=== PATIENT | female | born 1970 | race Caucasian/White ===

== ENCOUNTER 2017-03-11 08:15 | Inpatient (IN) ==
[2017-03-11] MEDS ORDERED: ZOFRAN IV PRN (08:23)
[2017-03-11 09:37] LABS: MANUAL DIFF NEEDED? NO
[2017-03-11 09:49] LABS: BASO% 0.9 % (0.0-0.8); EOS# 0.23 X1000 (0.0-0.7); EOS% 4.3 % (0.0-10.0); HEMOGLOBIN 10.8 g/dL (12.0-16.0); IMM GRAN# 0.05 X1000 (0.0-0.04); IMM GRAN% 0.9 % (0.0-0.5); LYMPH# 1.49 X1000 (1.2-3.4); LYMPH% 28.1 % (20.5-51.1); MCH 27.1 PG (27-31); MCHC 30.9 g/dL (33-37); MCV 87.9 FL (81-99); MONO# 0.46 X1000 (0.11-0.59); MONO% 8.7 % (1.7-9.3); MPV 9.6 FL (7.4-10.4); NEUT% 57.1 % (42.2-75.2); PLT 279 X1000 (130-400); RBC 3.98 XMIL (4.2-5.4)
[2017-03-11 10:06] LABS: HEMOGLOBIN A1C 6.4 % (4.8-6.0)
[2017-03-11 10:07] LABS: ALBUMIN 4.1 g/dL (3.5-5.0); CALCIUM 9.3 mg/dL (8.8-10.2); POTASSIUM 4.7 mmol/L (3.5-5.1); TOTAL BILIRUBIN 0.36 mg/dL (0.20-1.00); TOTAL PROTEIN 6.9 g/dL (6.3-8.3)
[2017-03-11 10:50] LABS: SED RATE 33 mm/hr (0-20)
[2017-03-11] MEDS ORDERED: VANCOMYCIN IV PER PHARMACY MISC SCH (12:00)
[2017-03-11] MEDS: HUMULIN R SUBQ SCH ×3 (12:38→21:17)
[2017-03-11] MEDS: NS 1,000 ML IV SCH (12:39)
[2017-03-11] MEDS: MAXIPIME 2 GM/NS 2 GM/100 ML IVPB IV SCH (12:39)
--- NOTE | 2017-03-11 13:18 | CONSULTATION ---
DATE OF CONSULTATION: 03/11/2017 CONCLUSION: This 46-year-old female diabetic is admitted to the hospital with severe cellulitis of the right 2nd toe and there may be an associated osteomyelitis as well. RECOMMENDATIONS: I have placed the patient on vancomycin and cefepime pending results of the culture I took from the patient's toe. I have also ordered a bone scan of the toe. Previously Dr. Valenzuela had an x-ray of the foot and it showed possible osteomyelitis in the distal part of the 2nd toe. DISCUSSION: The patient approximately 3 weeks ago started developing erythema and swelling of her 2nd toe. It also started to ulcerate distally. She has been on moxifloxacin and doxycycline but her toe still remains red and swollen. A plain x-ray of the toe shows possible evidence of osteomyelitis in the distal part of the right toe. The patient's laboratory studies show a CBC with a white count of 5300, hemoglobin 10.8, and platelet count 279,000. Creatinine is 1.1. The GFR is 53. Liver function studies are normal. PHYSICAL EXAMINATION: Vital Signs: Temperature is 98.1 degrees, pulse 72, respirations 18, blood pressure 123/54. The patient's weight is 284 pounds. General: This is an obese, middle-aged female. She is in no acute distress. Head, eyes, ears, nose, and throat: She can hear my spoken words and see near objects. No drainage noted from the nose or ears. Neck: No meningismus. Lungs: Clear to auscultation. Cardiovascular: Peripheral pulses were strong distally. Heart rate was regular. Abdomen: Soft and nontender. Extremities: The right 2nd toe is erythematous and swollen. There is a distal ulcer on it. It is from this ulcer that I obtained a culture of the foot. It did not appear that when I entered the ulcer with a swab that it went down all way to the bone. Neurologic: Patient is alert. She can move her extremities. There is no tremor. Her sensation is intact to touch. COMMODITIES MANAGER HISTORY: She is a 2, para 2, AB 0. She has had a hysterectomy and tubal ligation. PREVIOUS HOSPITALIZATIONS AND OPERATIONS: She has had 2 labor and deliveries, a hysterectomy, tubal ligation, surgery on her right ankle which was fractured, a cholecystectomy and admission for pneumonia. MEDICAL DISEASES: Positive for diabetes mellitus, hypertension, obesity and hyperlipidemia, fibromyalgia. INFECTIOUS DISEASE HISTORY: Positive for pneumonia. FAMILY HISTORY: Positive for diabetes mellitus, hypertension, myocardial infarction, stroke, and cancer. SOCIAL HISTORY: [place] She is . Her daughter and son-in-law and their child live with the patient. She does not smoke cigarettes, drink alcoholic beverages or abuse drugs. She does not have any pets at home. She works as a medical recruiter. ALLERGIES: The patient's chart lists allergies to acetaminophen and hydrocodone. HOME MEDICATIONS: Include the following tramadol, metformin, lisinopril, Lopid, Neurontin, vitamin D 2, diclofenac and aspirin. Thank you for the consult. cc: MD Mitch Barakat MD
[2017-03-11] MEDS: VANCOMYCIN 2 GM in NS 500 ML IV SCH (17:14)
--- NOTE | 2017-03-11 17:16 | Diag Imaging Result Doc PS360 ---
EXAM: 3 PHASE BONE SCAN INDICATION: right toe 2 osteomyelitis TECHNIQUE: 25.9 mCi of technetium 99 MDP was administered intravenously and three phase images of the feet were obtained usual fashion post administration. COMPARISON: None. FINDINGS: There is mild increased uptake associated with both ankles on the blood flow and blood pool phases indicating nonspecific hyperemia. There is also mild increased uptake at the tip of the second toe on the right on all three phases consistent with focal osteomyelitis. This corresponds to the bony erosion that can be seen on the previous plain radiograph of the toes dated 03/04/2017. On delayed images, there is also significant increased uptake at the mid foot on the right is nonspecific. It is likely associated with one or more of the tarsal bones. Correlation with a plain radiograph of the right foot is recommended. There is milder vague increased uptake around the left ankle and midfoot. This could represent degenerative uptake. IMPRESSION: 1.Focal increased uptake on all three phases at the tip of the second toe consistent with osteomyelitis, which was also suggestive of a recent plain radiograph. 2.Fairly intense increased uptake at the midfoot on the right that is nonspecific. Correlation with at least a plain radiograph of the right foot is recommended. 3.Milder increased uptake at the left ankle and midfoot. This may be degenerative uptake. Electronically signed by Ronn Sainz 03/11/2017 5:14 PM
[2017-03-12] MEDS: MAXIPIME 2 GM/NS 2 GM/100 ML IVPB IV SCH ×2 (00:23→12:49)
[2017-03-12] MEDS: HUMULIN R SUBQ SCH ×4 (06:56→21:15)
--- NOTE | 2017-03-12 11:37 | PROGRESS NOTE ---
DATE: 03/12/2017 SUBJECTIVE: The patient overall is okay. She does not feel like she can go through PICC line and 6 weeks of IV antibiotics, as she is a difficult stick and had 9 attempts yesterday at IV placement. OBJECTIVE: Vital signs: Afebrile, pulse 68, blood pressure 120/65, respirations 18, weight 284, 5 feet 6 inches tall. CV: RRR. Lungs: CTA. Abdomen: Nontender. Extremities: No edema. Right 2nd toe with prominent swelling and redness, most intense at the distal right 2nd toe with an ulceration, better, on the distal tip. There is heaped-up thickened toenail with signs of toenail fungus, better as well. There is desquamation of the skin back to the midportion, and midportion of the toe was quite swollen and red, as well. Peripheral pulse 2+. Neurological: Cranial nerves intact, nonfocal. LABORATORY DATA: CMP normal. A1c 6.4. White count 5.3, hemoglobin 10.8, platelets 279. Sedimentation rate 33. Culture on the right 2nd toe is pending. IMAGING: Bone scan shows increased uptake in all 3 phases at the tip of the right 2nd toe consistent with osteomyelitis which was suggested on recent plain films outpatient. Also, fairly intense midfoot on the right uptake. The patient has had at least 2 extreme traumas to the right foot and ankle in the past on the right. There is a mild uptake of nuclear medicine at the left ankle and midfoot consistent with degenerative changes. ASSESSMENT: 1. Right 2nd toe osteomyelitis with cellulitis. 2. Type 2 diabetes mellitus. 3. Hypertension. 4. Morbid obesity. 5. Hyperlipidemia. 6. Fibromyalgia. PLAN: She is followed by Rheumatology in [place], and will place her back on her fibromyalgia medicines of Neurontin, Cymbalta. Will leave her off her aspirin right now in case Dr. Culp wants to perform surgery on the patient. We are going to ask him to see her in regard to possible amputation of the distal aspect, right 2nd toe. We have done an x-ray of her right foot, which is pending. Dr. Dexter has started her on IV antibiotics in the form of cefepime and vancomycin. Will continue those, and will give pain medicines as required. Will follow serial Accu-Cheks, and SSI will be given. cc: Mitch Valenzuela MD
--- NOTE | 2017-03-12 14:21 | Diag Imaging Result Doc PS360 ---
EXAM: FOOT COMPLETE RIGHT INDICATION: abn bone scan TECHNIQUE: 3 views COMPARISON: None. FINDINGS: There are metallic screws in the distal tibia. The increased uptake involving the right midfoot seen on the recent bone scan dated 03/11/2017 appears to correspond to degenerative arthropathy at the tarsometatarsal joints, more prominent medially. There is a small bone spur at the calcaneus. There is bony erosion at the tip of the second toe consistent with known osteomyelitis. There is soft tissue edema around the foot and, most prominently, around the second toe. IMPRESSION: 1.Extensive tarsometatarsal degenerative changes that appears to account for the increased uptake seen on a recent bone scan. 2.Erosion of the distal phalanx of the second toe consistent with known osteomyelitis. Electronically signed by Ronn Sainz 03/12/2017 2:19 PM
[2017-03-12] MEDS: VANCOMYCIN 2 GM in NS 500 ML IV SCH (15:27)
[2017-03-12] MEDS: NEURONTIN PO SCH ×2 (15:32→17:30)
[2017-03-12] MEDS: LOPID PO SCH (21:15)
[2017-03-12] MEDS: TYLENOL PO PRN (22:27)
[2017-03-13] MEDS: MAXIPIME 2 GM/NS 2 GM/100 ML IVPB IV SCH ×2 (01:12→12:20)
--- NOTE | 2017-03-13 04:09 | HISTORY AND PHYSICAL ---
CHIEF COMPLAINT: Right 2nd toe osteomyelitis. HISTORY OF PRESENT ILLNESS: The patient is a 46-year-old, white female who presented to the office on 03/04/2017 with complaints of a 3-1/2 week history of ulceration that developed on the distal right 2nd toe after she had worn some sandals which seemed to cause a rash and she began to scratch. Thereafter, she developed an ulceration, and some purulence and redness of the right 2nd toe which extended back more toward the base of the right 2nd toe. She came into the office and had some purulence. We placed her on antibiotics outpatient of Avelox 400 mg daily and doxycycline 100 mg b.i.d. X-ray of her toe, however, did show some evidence of possible osteomyelitis. Tried to make her an outpatient appointment with Dr. Tray Dexter but we were unsuccessful in doing so and the toe worsened slightly so we admitted her to the hospital here for further IV antibiotics and treatment since there is potential for an amputation of the distal aspect of the toe if that is warranted. MEDICATIONS: Other medications prior to admission are Cymbalta 60 mg p.o. daily, lisinopril 40 mg p.o. daily, Synjardy 12.5/500 one p.o. b.i.d. with breakfast and supper, Neurontin per Dr. Martinez at 600 mg p.o. b.i.d., Lopid 600 mg p.o. b.i.d. ALLERGIES: NKDA. PAST MEDICAL HISTORY: 1. Obesity. 2. Type 2 diabetes mellitus, diagnosed September 2008. 3. Fibromyalgia, followed by Dr. Martinez, diagnosed 2015. 4. JOSE, diagnosed April 2016. 5. Dyslipidemia. 6. History of headaches. PAST SURGICAL HISTORY: 1. Right ankle ORIF in 1976. 2. BTL in October 1995. 3. Laparoscopic cholecystectomy in 2006. IMMUNIZATIONS: Tdap given May 2016. FAMILY HISTORY: Notable for MO in mother at age 48, father at age 46. Coronary artery disease noted in her paternal grandfather and paternal grandmother. Maternal grandfather had MO at age 60, maternal grandmother at age 50. Adult onset diabetes mellitus in 4 great aunts and her sister. Paternal grandfather with a stroke, along with her paternal uncle. No cancer in the family. Mother and paternal grandfather with hypertension. SOCIAL HISTORY: The patient lives in [place]. She is . She has 2 children. She had never been a smoker. Drinks minimal amount of alcohol. Denies any drug use. 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 REVIEW OF SYSTEMS: Negative except as above. PHYSICAL EXAMINATION: VITAL SIGNS: Weight 292, blood pressure 122/78, pulse 85, temperature 98.8 degrees. GENERAL: Morbidly obese, white female, no acute distress. SKIN: There is prominent redness to the mid and distal aspects of the right 2nd toe with heaped up, thickened skin around the dystrophic nail of the right 2nd toe. There is an ulceration at the distal aspect of the right 2nd toe which I had debrided in the office briefly earlier. There are no signs of redness, warmth, or tenderness in the foot on the right. HEENT: PERRL. EOMI. Sclerae anicteric. OP without redness. Tongue in the midline. NECK: No LA, TMG, JVD, bruits. CV: RRR without murmur. LUNGS: CTA. BACK: NT. ABDOMEN: Protuberant, soft. No mass or organomegaly. BREASTS/PELVIC/RECTAL: Deferred. EXTREMITIES: No calf tenderness, cords, or edema. Peripheral pulses 2+/4 in bilateral lower extremities. NEUROLOGIC: Cranial nerves are intact. Nonfocal. ASSESSMENT: 1. Right 2nd toe osteomyelitis and cellulitis. 2. Type 2 diabetes mellitus. 3. Morbid obesity. 4. Fibromyalgia. 5. Dyslipidemia. 6. Obstructive sleep apnea. 7. History of remote headaches. PLAN: We will admit the patient. Check extensive labs to include CBC, sedimentation rate, CMP. Check bone scan and we will ask Dr. Tray Dexter to see the patient in consultation for his advice on IV antibiotics and further treatment. cc: Mitch Valenzuela MD
[2017-03-13] MEDS: HUMULIN R SUBQ SCH ×4 (06:13→22:16)
[2017-03-13] MEDS: CYMBALTA PO SCH (08:58)
[2017-03-13] MEDS: PRINIVIL PO SCH (08:58)
[2017-03-13] MEDS: NEURONTIN PO SCH ×3 (08:58→22:16)
[2017-03-13] MEDS: LOPID PO SCH ×2 (08:58→22:16)
--- NOTE | 2017-03-13 10:56 | PROGRESS NOTE ---
DATE: 03/13/2017 SUBJECTIVE: Patient complains of some diffuse body aches overall off her Voltaren gel. OBJECTIVE: Vital signs: Afebrile, pulse 83, blood pressure 1303/59, O2 saturation on room air 96%. CV: RRR. Lungs: CTA. Abdomen: Nontender and nondistended. Extremities: No calf tenderness cords or edema. right 2nd toe is bandaged. There is no redness in the foot whatsoever. IMAGING STUDIES: X-rays of right foot revealed arthritic changes in the forefoot area. No osteomyelitis. Hardware in the right ankle. ASSESSMENT: 1. Osteomyelitis right 2nd toe with cellulitis right 2nd toe. 2. Type 2 diabetes mellitus. 3. Hypertension. 4. Morbid obesity. 5. Hyperlipidemia. 6. Fibromyalgia. PLAN: Explained to the patient that we are leaving off the Voltaren in prep for potential surgery per Dr. Culp to remove the distal aspect of her right 2nd toe. Dr. Culp evaluate and see the patient this morning. She will remain on IV antibiotics per Dr. Dexter and her home medications other than the diabetic medications and medicines that would prohibit surgery. Continue present care with possible surgery for tomorrow. cc: Mitch Valenzuela MD
[2017-03-13] MEDS: NS 1,000 ML IV SCH (12:20)
--- NOTE | 2017-03-13 12:23 | CONSULTATION ---
DATE OF CONSULTATION: 03/13/2017 CHIEF COMPLAINT: Right second toe wound. HISTORY OF PRESENT ILLNESS: Ms. aDsh is a 46-year-old female with a history of poorly controlled diabetes, developed diabetic neuropathy. Had this reddened area on her 2nd toe come up over the past several weeks. Eventually developed into a sore and started draining a lot. She has seen her primary care physician, Dr. Valenzuela, who put her on some outpatient antibiotics. Unfortunately, it did not clear up very well, so he admitted her to the hospital for IV antibiotics and surgical consultation. She does not really have any pain with it because she has neuropathy. This has been going on for about a good 3-4 weeks at this point. PAST MEDICAL HISTORY: Diabetes, sleep apnea. PAST SURGICAL HISTORY: ORIF ankle 1976. Tubal ligation and cholecystectomy. FAMILY HISTORY: Positive for heart disease. SOCIAL HISTORY: She denies any smoking. REVIEW OF SYSTEMS: Positive for this right 2nd toe sore. All other systems are essentially negative. PHYSICAL EXAMINATION: General: Well-developed, well-nourished female in no acute distress. HEENT: Head and neck normocephalic, atraumatic. Respirations: Nonlabored. Cardiovascular: Regular rate. Abdomen: Nondistended. Extremity: Right lower extremity exam, in looking at the second toe, she has ulceration to the tip. It is swollen throughout the toe, and there is erythema coming up almost to the MTP joint. Denied any active drainage out of the end of the toe. She has really no sensation at all to the toe. She has good capillary refill. No other sores seen around the foot. IMAGING: Her foot x-ray and toe x-rays were reviewed. The most recent foot x-ray shows fracture of the distal phalanx of the second toe. ASSESSMENT: 1. Right second toe diabetic foot ulcer with cellulitis. 2. Possible right second toe osteomyelitis. 3. Right second toe distal phalanx fracture. PLAN: I went over with Ms. Dash about the second toe. It does not look terrible on physical exam, but what is worrisome is that the distal phalanx is fractured, and there is a wound to the distal tip of the toe, and in that type of setting, you always worry about osteomyelitis of that distal phalanx. I discussed with her about treatment. She has some concerns about treatment, especially if she will not be able to lift much after her PICC line. The question is whether we need to go in and amputate the distal tip of the toe, try to completely get rid of the infection versus just treatment with IV antibiotics and see how we do. Her leaning is toward having the surgery, just to go in to just care of it. What I will do is I will discuss things with Dr. Dexter though and we will come up with a good plan. She can eat and drink today. We would not do anything probably until tomorrow or even Tuesday. cc: MD Mitch Mckeon MD
[2017-03-13] MEDS: VANCOMYCIN 2 GM in NS 500 ML IV SCH (16:12)
[2017-03-13] MEDS: TYLENOL PO PRN (23:05)
[2017-03-14] MEDS: MAXIPIME 2 GM/NS 2 GM/100 ML IVPB IV SCH ×2 (02:28→13:47)
[2017-03-14] MEDS: DILAUDID IV PRN ×2 (05:24→21:20)
[2017-03-14] MEDS: HUMULIN R SUBQ SCH ×4 (07:59→21:19)
[2017-03-14] MEDS: PRINIVIL PO SCH (09:18)
[2017-03-14] MEDS: NEURONTIN PO SCH ×3 (09:18→21:19)
[2017-03-14] MEDS: CYMBALTA PO SCH (09:19)
[2017-03-14] MEDS: LOPID PO SCH ×2 (09:19→21:19)
--- NOTE | 2017-03-14 11:59 | PROGRESS NOTE ---
DATE: 03/14/2017 SUBJECTIVE: Ms. Dash is sitting at bedside. OBJECTIVE: Left lower extremity exam, still sore to the tip of the 2nd toe. ASSESSMENT: Left 2nd toe osteomyelitis of the distal phalanx with open sore. PLAN: I am okay with Ms. Dash being discharged from the hospital today. What I will do is see her in my clinic this 03/16/2017, and we will get her scheduled for surgery on an outpatient basis for a distal tip amputation 2nd toe so she will need to see me this Tuesday in clinic. cc: MD Mitch Mckeno MD
[2017-03-14] MEDS: NS 1,000 ML IV SCH (13:48)
--- NOTE | 2017-03-14 15:36 | PROGRESS NOTE ---
DATE: 03/14/2017 PRESENT ILLNESS: The patient has cellulitis and osteomyelitis of the 2nd toe of the right foot due to infection with oxacillin-sensitive Staph aureus. MEDICATIONS: Currently the patient is on vancomycin and cefepime. PHYSICAL EXAMINATION: Vital Signs: Temperature is 97.7 degrees, pulse 76, respirations 18, blood pressure 112/55. Generally: This is an obese middle-aged female. She is in no acute distress. Lungs: Clear to auscultation. Cardiovascular: Regular heart rate. Abdomen: Soft and nontender. Extremities: The patient's right 2nd toe is less erythematous and swollen than it was a couple days ago. LAB AND X-RAY: The patient's bone scan shows findings consistent with osteomyelitis of the 2nd toe. A culture from the toe is growing oxacillin-sensitive Staph aureus. ASSESSMENT AND PLAN: The patient has Staphylococcus osteomyelitis 2nd toe. I have switched from vancomycin and cefepime to Ancef as a single drug. I have discussed the patient's case with Dr. Culp and Dr. Valenzuela. We agree to treat the patient with IV antibiotics and send her home till the end of the week at which time Dr. Culp will performed surgery on her toe. I have ordered that a PICC be placed and a consult with [facility] to supply the patient's home IV antibiotic. I have requested that the patient see me back in the office in 3 weeks. COMORBIDITIES: Include diabetes mellitus. cc: MD Mitch Barakat MD
[2017-03-14 16:33] LABS: INR 0.96
[2017-03-14] MEDS: TYLENOL PO PRN (16:56)
[2017-03-14] MEDS: KEFZOL 2 GM/D5W 2 GM/50 ML IVPB IV SCH ×2 (16:56→23:02)
--- NOTE | 2017-03-14 17:39 | PROGRESS NOTE ---
DATE: 03/14/2017 SUBJECTIVE: Patient remains stable. She is feeling better today. Her right 2nd toe remains red. OBJECTIVE: Vital signs: Afebrile. Pulse 76, respirations 18, blood pressure 112/55, O2 saturation room air 98%. CARDIOVASCULAR: Regular rhythm and rate. Lungs: CTA. Abdomen: Nontender. Extremities: Right 2nd toe is still red. Distal 2/3 of the toe there is some desquamation in thickening scale to the skin of the 2nd toe and there is a dystrophic toenail right 2nd toe, ulceration which is dry distal tip of the right 2nd toe. LABORATORY: Culture from the wound done by Dr. Dexter reveals methicillin sensitive Staph aureus. Blood sugars in the high 100s to low 200s. ASSESSMENT: 1. Osteomyelitis right 2nd toe with cellulitis right 2nd toe. 2. Type 2 diabetes mellitus. 3. Hypertension. 4. Morbid obesity. 5. Hyperlipidemia. 6. Fibromyalgia. PLAN: Dr. Dexter is changing her over to IV Ancef with plans to place a PICC line and continue IV antibiotics outpatient as Dr. Culp plans for amputation of her distal 2nd toe on the right. He desires for this area to be cleaned prior to that operation. We will move in that regard. cc: Mitch Valenzuela MD
[2017-03-15] MEDS: NS 1,000 ML IV SCH (02:07)
[2017-03-15] MEDS: HUMULIN R SUBQ SCH ×4 (06:25→22:56)
[2017-03-15] MEDS: KEFZOL 2 GM/D5W 2 GM/50 ML IVPB IV SCH ×3 (08:10→22:57)
[2017-03-15] MEDS: CYMBALTA PO SCH (08:11)
[2017-03-15] MEDS: LOPID PO SCH ×2 (08:11→21:31)
[2017-03-15] MEDS: PRINIVIL PO SCH (08:12)
[2017-03-15] MEDS: NEURONTIN PO SCH ×3 (08:12→21:35)
[2017-03-15] MEDS: TYLENOL PO PRN ×2 (08:15→16:45)
[2017-03-15] MEDS ORDERED: NS 250 ML ONE (08:36)
--- NOTE | 2017-03-15 09:46 | PROGRESS NOTE ---
DATE: 03/15/2017 SUBJECTIVE: Patient complains of some left ankle pain and swelling, fairly mild, has developed. OBJECTIVE: Vital Signs: Afebrile. Pulse 88, blood pressure 119/56, room air saturation of 99%. CV: RRR. Lungs: CTA. Extremities: No calf tenderness or cords. Very minimal left ankle swelling and minimal tenderness. There is no warmth, no skin breakdown. Right toe unchanged. ASSESSMENT: 1. Osteomyelitis with cellulitis of right 2nd toe, growing out methicillin-sensitive Staphylococcus aureus. 2. Left ankle pain, rule out gout. 3. Type 2 diabetes mellitus. 4. Hypertension. 5. Morbid obesity. 6. Hyperlipidemia. 7. Fibromyalgia. PLAN: She is going down as we speak to get a PICC line. We will continue IV Ancef per Dr. Dexter. Outpatient plans for Dr. Culp to perform amputation of distal aspect of left 2nd toe. We will go ahead and check uric acid level. Start the patient on some Colcrys. cc: Mitch Valenzuela MD
[2017-03-15] MEDS: COLCRYS PO SCH ×2 (09:49→21:31)
[2017-03-15 10:14] LABS: MANUAL DIFF NEEDED? NO
[2017-03-15 10:19] LABS: BASO% 0.8 % (0.0-0.8); EOS# 0.23 X1000 (0.0-0.7); EOS% 4.4 % (0.0-10.0); HEMATOCRIT 34.2 % (37.0-47.0); HEMOGLOBIN 10.8 g/dL (12.0-16.0); IMM GRAN# 0.05 X1000 (0.0-0.04); IMM GRAN% 0.9 % (0.0-0.5); LYMPH# 1.14 X1000 (1.2-3.4); LYMPH% 21.6 % (20.5-51.1); MCH 27.5 PG (27-31); MCHC 31.6 g/dL (33-37); MONO# 0.45 X1000 (0.11-0.59); MONO% 8.5 % (1.7-9.3); MPV 10.3 FL (7.4-10.4); NEUT% 63.8 % (42.2-75.2); PLT 245 X1000 (130-400); RBC 3.93 XMIL (4.2-5.4)
[2017-03-15 10:44] LABS: AGAP 12; BUN 21 mg/dL (8-22); CHLORIDE 99 mmol/L (98-107); COSMO 277; POTASSIUM 5.1 mmol/L (3.5-5.1); SODIUM 135 mmol/L (136-145); TCO2 24 mmol/L (25-35)
[2017-03-15] MEDS ORDERED: ULTRAM PO PRN (17:58)
[2017-03-15] MEDS: DILAUDID IV PRN (21:31)
[2017-03-16] MEDS: NS 1,000 ML IV SCH (04:00)
[2017-03-16] MEDS: KEFZOL 2 GM/D5W 2 GM/50 ML IVPB IV SCH ×3 (06:31→23:07)
[2017-03-16] MEDS: HUMULIN R SUBQ SCH ×4 (06:31→23:07)
[2017-03-16] MEDS: PRINIVIL PO SCH (09:22)
[2017-03-16] MEDS: NEURONTIN PO SCH ×3 (09:22→17:00)
[2017-03-16] MEDS: CYMBALTA PO SCH (09:23)
[2017-03-16] MEDS: COLCRYS PO SCH ×2 (09:23→23:07)
[2017-03-16] MEDS: LOPID PO SCH ×2 (09:23→23:07)
--- NOTE | 2017-03-16 16:53 | PROGRESS NOTE ---
DATE: 03/16/2017 PRESENT ILLNESS: The patient has cellulitis and osteomyelitis of the right foot, second toe. A culture from the toe grew oxacillin-sensitive Staph aureus. MEDICATIONS: The patient currently is receiving cefazolin at a dose of 2 g IV every 8 hours. PHYSICAL EXAMINATION: Vital Signs: Temperature is 98.2 degrees, pulse 81, respirations 20, blood pressure 112/59. General: This is an obese, middle-aged female who is in no acute distress. Lungs: Clear to auscultation. Cardiovascular: Regular heart rate. Abdomen: Soft and nontender. Extremities: The left arm has a PICC in it. The PICC site is not erythematous or tender. The patient's right foot, toe 2 has a dressing around it. The dressing is intact. LAB AND X-RAY: There is no new x-ray. There is no new lab today. The culture from the toe grew an oxacillin-sensitive Staph aureus. ASSESSMENT AND PLAN: The plan is to continue with Ancef as a single agent. The patient is going to have surgery on her toe 2 of the right foot tomorrow. The patient's comorbidities include the following; she has diabetes mellitus. cc: MD Mitch Barakat MD
--- NOTE | 2017-03-16 16:56 | PROGRESS NOTE ---
DATE: 03/16/2017 SUBJECTIVE: Patient is stable. There has been a change of plans and patient has a PICC line in her left arm and is receiving IV antibiotics for the osteomyelitis. Dr. Culp now plans to perform the surgery on her with distal amputation of right 2nd toe tomorrow. So we are going to hold her in the hospital at this point, rather than discharge. Left ankle is still giving her some pain but is improved after addition of Colcrys OBJECTIVE: Afebrile, pulse 81, respiration is 20, blood pressure 112/59.CV: RRR without murmur. Lungs: CTA. Abdomen: Nontender, nondistended. Extremities: No calf tenderness, cords or edema. There is mild tenderness and warmth left ankle area. Right 2nd toe still has some redness and distal skin desquamation. ASSESSMENT: 1. Osteomyelitis with cellulitis right 2nd toe growing out methicillin-susceptible Staphylococcus aureus. 2. Left ankle pain related to gout with elevated uric acid level. 3. Type 2 diabetes mellitus. 4. Hypertension. 5. Morbid obesity. 6. Hyperlipidemia. 7. Fibromyalgia. PLAN: Continue Colcrys for the gout, which is helping. Continue pain control with Ultram and Dilaudid if necessary. Continue PICC line, IV antibiotics in the form of Ancef per Dr. Dexter. We will be following the patient perioperatively. cc: Mitch Valenzuela MD
[2017-03-17] MEDS: HUMULIN R SUBQ SCH ×4 (06:17→22:19)
[2017-03-17] MEDS ORDERED: XYLOCAINE-MPF 2% ONE (07:50)
[2017-03-17] MEDS ORDERED: DIPRIVAN 1% ONE (07:51)
--- NOTE | 2017-03-17 08:04 | PROGRESS NOTE ---
DATE: 03/17/2017 SUBJECTIVE: Ms. Dash is lying in bed this morning. Overall feeling okay. She has been n.p.o. since midnight. OBJECTIVE: Right lower extremity exam: The toe is still erythematous to the tip. There is Still an ulcer on the very tip of the toe as well. No other erythema to any of the of the toes or to the main part of the forefoot or midfoot. ASSESSMENT: Right second toe distal phalanx osteomyelitis. PLAN: Will plan for amputation of the distal phalanx of that right second toe today in the OR. I have already gone over with her the risks and benefits and she expressed understanding and wished to proceed. The right second toe was marked as correct surgical site this morning at bedside, with her in agreement. So, we will get everything set for distal tip amputation of second toe today. cc: MD Mitch Mckeon MD
[2017-03-17] MEDS ORDERED: FENTANYL ONE (08:52)
--- NOTE | 2017-03-17 08:52 | PROGRESS NOTE ---
DATE: 03/17/2017 SUBJECTIVE: Patient is stable. Left ankle pain from the gout is improving. She is scheduled for right second distal toe amputation later today per Dr. Culp. OBJECTIVE: Vital signs: Afebrile. Vital signs stable. CV: RRR. Lungs: CTA. Extremities: No calf tenderness, cords or edema. Right toe is bandaged and is marked for surgery later today. Peripheral pulses 2+ lower extremities. Blood sugars in the high 100s. ASSESSMENT: 1. Osteomyelitis right second toe with cellulitis, methicillin-sensitive Staphylococcus aureus. 2. Gout, left ankle, improving. 3. Type 2 diabetes mellitus. 4. Hypertension. 5. Morbid obesity. 6. Hyperlipidemia. 7. Fibromyalgia. PLAN: Continue IV antibiotics per Dr. Dexter. Continue Colcrys. Patient for surgery later today. Will monitor postoperatively. cc: Mitch Valenzuela MD
[2017-03-17] MEDS: KEFZOL 2 GM/D5W 2 GM/50 ML IVPB IV SCH ×5 (09:32→22:19)
[2017-03-17] MEDS ORDERED: REGLAN ONE (09:38)
[2017-03-17] MEDS ORDERED: PEPCID ONE (09:38)
[2017-03-17] MEDS ORDERED: ZOFRAN ONE (10:04)
--- NOTE | 2017-03-17 11:53 | OPERATIVE NOTE ---
PROCEDURE DATE: 03/17/2017 PREOPERATIVE DIAGNOSES: 1. Right 2nd toe distal phalanx osteomyelitis. 2. Right 2nd toe diabetic foot ulceration. POSTOPERATIVE DIAGNOSES: 1. Right 2nd toe distal phalanx osteomyelitis. 2. Right 2nd toe diabetic foot ulceration. PROCEDURES: 1. Right 2nd toe distal interphalangeal joint amputation. 2. Right irrigation and debridement of the 2nd toe. SURGEON: Dr. Kev Culp. MANAGEMENT DEVELOPMENT SPECIALIST: Esperanza Ocampo, nurse practitioner. ANESTHESIA: General with LMA. TOURNIQUET TIME: 21 minutes. IMPLANTS: None. ESTIMATED BLOOD LOSS: 10 mL. DISPOSITION: To PACU, hemodynamically stable. INDICATION FOR PROCEDURE: Ms. Briseida Dash is a 46-year-old female who I was consulted on in the hospital for the 2nd toe osteomyelitis. I discussed with her about treatment options including nonoperative and operative intervention. After I went over everything with her, she actually wanted the toe removed on that osteomyelitic bone so I went over with her the procedure, risks, benefits, and potential complications, and she expressed understanding and wished to proceed. DESCRIPTION OF THE PROCEDURE: Ms. Dash was identified in the preoperative holding area. The right foot was marked as the correct surgical site. She was then wheeled to the operating room and placed supine on the operating table. All bony prominences were well padded. She was induced under general anesthesia. LMA was placed. No tourniquet was placed to the thigh. Right lower extremity was then prepped with chlorhexidine gluconate scrub and then ChloraPrep, and draped in a normal sterile fashion. Surgical pause was performed. We identified the correct patient, the correct side, and the correct procedure. Preoperative antibiotics were given. Esmarch was used at the level of the ankle as the tourniquet and it was up for 21 minutes. I started with an incision over the DIP joint and just a little bit distal to it to make a little fishmouth type incision. I then amputated the right 2nd toe at the level of the DIP joint and that toe was then sent to Pathology. After that, the tissues actually all looked very clean. I did not see any evidence of infection but I did irrigate everything copiously with normal saline and debrided that area back. That all looked fine. After that, then I used a 2-0 PDS and repaired the flexor tendon to the extensor tendon over the end of the middle phalanx cartilage. Then I use nylon to close the skin. The tourniquet was let down. Adaptic, 4x4s, and a loose Jason were placed over the foot. The patient was awoke from general anesthesia, moved to her own bed, and taken to the PACU in stable condition. Postoperatively, patient should be nonweightbearing as tolerated in a postop shoe on the right lower extremity. Then I will see her in about a week in clinic. cc: MD Mitch Mckeon MD
[2017-03-17] MEDS: DILAUDID IV PRN ×3 (12:06→22:07)
[2017-03-17] MEDS: LOPID PO SCH ×2 (12:21→20:10)
[2017-03-17] MEDS: CYMBALTA PO SCH (12:21)
[2017-03-17] MEDS: PRINIVIL PO SCH (12:21)
[2017-03-17] MEDS: NEURONTIN PO SCH ×3 (12:21→18:38)
[2017-03-17] MEDS: COLCRYS PO SCH ×2 (12:22→20:10)
[2017-03-17] MEDS: NS 1,000 ML IV SCH ×2 (15:45→15:47)
[2017-03-18] MEDS: DILAUDID IV PRN ×3 (02:01→10:03)
[2017-03-18] MEDS: HUMULIN R SUBQ SCH ×2 (05:58→08:12)
[2017-03-18] MEDS: NEURONTIN PO SCH (08:46)
[2017-03-18] MEDS: COLCRYS PO SCH (08:46)
[2017-03-18] MEDS: PRINIVIL PO SCH (08:46)
[2017-03-18] MEDS: CYMBALTA PO SCH (08:46)
[2017-03-18] MEDS: KEFZOL 2 GM/D5W 2 GM/50 ML IVPB IV SCH (08:46)
[2017-03-18] MEDS: LOPID PO SCH (08:46)
--- NOTE | 2017-03-18 11:57 | PROGRESS NOTE ---
DATE: 03/18/2017 SUBJECTIVE: Patient is postop day 1 from right distal phalanx 2nd toe amputation per Dr. Culp due to osteomyelitis. She is doing well postoperatively. Did have some slightly low blood pressures lasted last evening. OBJECTIVE: Vital Signs: Afebrile. Pulse 72, blood pressure 104/52, O2 saturation room air 100%. CV: RRR without murmur. Lungs: CTA. Extremities: No edema. Right toe area bandaged. Minimal swelling left ankle area from gout, improving. ASSESSMENT: 1. Postoperative day #1, status post right 2nd toe distal aspect amputation related to osteomyelitis and cellulitis methicillin-susceptible Staphylococcus aureus. 2. Gout, left ankle, improving. 3. Type 2 diabetes mellitus. 4. Hypertension. 5. Morbid obesity. 6. Hyperlipidemia. 7. Fibromyalgia. 8. Brief hypotension, better now status post surgery and less pain medications. PLAN: Patient will be discharged on Ultram for pain. He she is going to received IV Ancef through [facility] t.i.d. per PICC line in the left arm, which is showing no signs of infection. She is going to follow up with Dr. Dexter on March 30 for removal of PICC line and stoppage of the IV antibiotics. DISCHARGE MEDICATIONS: Ancef 2 g q.8 hours, otherwise she will be on Colcrys 0.6 mg p.o. b.i.d., Cymbalta 60 mg p.o. daily, Neurontin 600 mg p.o. t.i.d., Lopid 600 mg p.o. b.i.d., lisinopril 40 mg p.o. daily, tramadol 50 mg p.o. q.6 hours p.r.n. pain. She is going to also follow up with Dr. Culp in a week. cc: Mitch Valenzuela MD
--- NOTE | 2017-03-18 12:34 | PROGRESS NOTE ---
DATE: 03/18/2017 SUBJECTIVE: The patient has cellulitis of the right 2nd toe and osteomyelitis of the distal phalanx of the 2nd toe. At surgery, Dr. Culp removed the distal phalanx, which was the bone that had the osteomyelitis in it. PLAN: Postoperatively, I am going to treat the patient with Ancef at a dose of 2 grams IV every 8 hours for 2 weeks. I will see her in my office at 2 weeks, and at that time, we will take out her PICC. I have put a consult in for [employer] to supply the patient's home IV antibiotic. The antibiotic is Ancef 2 grams IV every 8 hours. cc: MD Mitch Barakat MD MTDD
[2017-03-18 13:22] VITALS: BP 102/44
== END 2017-03-18 14:47 | disposition home or self-care (01) ==
LOC: DIRADM 08:15 → 3N 08:48
PROVIDERS: ADMIT Family Medicine; ATTEND Family Medicine

== ENCOUNTER 2018-11-09 07:00 | Inpatient (IN) ==
[2018-11-09] MEDS ORDERED: XYLOCAINE-MPF 2% ONE (10:03)
[2018-11-09] MEDS ORDERED: DIPRIVAN 1% ONE (10:04)
[2018-11-09] MEDS ORDERED: QUELICIN (DOSE) ONE (10:07)
[2018-11-09] MEDS ORDERED: PEPCID ONE (10:31)
[2018-11-09] MEDS ORDERED: REGLAN ONE (10:31)
[2018-11-09] MEDS ORDERED: KEFZOL 1 GM/D5W 2 GM/100 ML IVPB ONE (10:32)
[2018-11-09] MEDS ORDERED: LR 1,000 ML ONE (10:32)
[2018-11-09] MEDS ORDERED: FENTANYL ONE (11:41)
[2018-11-09] MEDS ORDERED: ZEMURON ONE ×4 (11:42→13:01)
[2018-11-09] MEDS ORDERED: NEO-SYNEPHRINE ONE (11:44)
[2018-11-09] MEDS ORDERED: SODIUM CHLORIDE 0.9% 10 ML ONE (11:44)
[2018-11-09] MEDS ORDERED: ROBINUL ONE ×2 (11:46→14:02)
[2018-11-09] MEDS ORDERED: EPHEDRINE ONE (12:33)
[2018-11-09] MEDS ORDERED: OFIRMEV 1000 MG/ISOTONIC SOLN 1,000 MG/100 ML BOTTLE ONE (12:57)
[2018-11-09] MEDS ORDERED: ZOFRAN ONE (13:04)
[2018-11-09] MEDS ORDERED: NEOSTIGMINE ONE (14:02)
[2018-11-09] MEDS ORDERED: LR 500 ML ONE (14:58)
[2018-11-09] MEDS: DILAUDID ONE ×3 (15:00→20:00)
[2018-11-09] MEDS: OXY IR PO PRN ×2 (16:00→20:59)
[2018-11-09] MEDS: MORPHINE IV PRN ×2 (16:52→19:41)
[2018-11-09] MEDS: NEURONTIN PO SCH (17:42)
[2018-11-09] MEDS: KEFZOL 1 GM/D5W 1 GM/50 ML IVPB IV SCH (17:42)
--- NOTE | 2018-11-09 17:55 | HISTORY AND PHYSICAL ---
SUBJECTIVE: Nausea and abdominal pain HISTORY OF PRESENT ILLNESS: The patient is a 47-year-old white female followed by Dr. Kev Culp. She has a bad Charcot joint left foot/ankle area and had reconstructive surgery for that today per Dr. Culp. She has been struggling she says since 09/20/2018 and has been off work since that time due to her ankle and foot pain. She has a history of right foot/right 2nd toe osteomyelitis with MSSA cellulitis requiring amputation of the right 2nd toe back in February 2017. MEDICATIONS PRIOR TO ADMISSION: PAST MEDICAL HISTORY: 1. History of osteomyelitis, right 2nd toe with amputation, February 2017. 2. History of diabetic foot ulcer, left toe, back in the last couple months, now cleared up with treatment per Dr. Culp. 3. Gout, left ankle. 4. Type 2 diabetes mellitus. 5. Hypertension. 6. Morbid obesity. 7. Hyperlipidemia. 8. Fibromyalgia. 9. JOSE. 10. History of headaches, remote. PAST SURGICAL HISTORY: 1. Amputation, right 2nd toe in February 2017. 2. Right ankle ORIF 1976. 3. BTL, October 1995. 4. Laparoscopic cholecystectomy 2006. IMMUNIZATIONS: TDAP given in our office May 2016. FAMILY HISTORY: 1. Notable for VT in her father at age 46, mother at age 48, maternal grandmother at age 50, maternal grandfather age 60. Paternal grandmother and paternal grandfather both have heart disease, as well. 2. Adult onset diabetes mellitus in all 4 grandparents and in her sister. 3. Paternal grandfather with stroke. Paternal uncle with stroke. 4. No cancer in the family. 5. Hypertension in her mother and paternal grandfather. SOCIAL HISTORY: The patient lives in [place]. She is . She has 2 children. She has been a lifelong nonsmoker. Drinks occasional alcohol. No drug use. The patient works at [employer] in [employer]. REVIEW OF SYSTEMS: Notable for a bad hemorrhoid recently over the past month and also some off and on constipation. Otherwise, review of systems negative. PHYSICAL EXAMINATION: VITAL SIGNS: Temperature 98.5 degrees, pulse 89, respirations 16, blood pressure 101/58, O2 saturation on room air 98%. HEIGHT/WEIGHT: Weight 265, 5 feet 6 inches tall. GENERAL: Moderately obese white female with left leg below the knee in the dressing and cast. SKIN: No breakdown. HEENT: KYLE. EOMI. Sclerae are clear. OP: No redness. NECK: No LA, [*], JVD, bruits. CARDIOVASCULAR: RRR without murmur. LUNGS: Clear to auscultation. ABDOMEN: Protuberant, soft. No pinpoint tenderness. No mass, organomegaly. Cannot evaluate hemorrhoid at this time as she is lying flat on her back per orthopedic recommendation and just come out of surgery. NEUROLOGIC: Cranial nerves are intact. No focal deficits. BREASTS/PELVIC/RECTAL: Deferred. LABORATORIES: Show blood sugar 186. ASSESSMENT: 1. Postoperative day #0 status post reconstruction of left/ankle foot area due to Charcot joint. 2. History of diabetic foot ulcers requiring 2nd toe amputation on the right, 2016. 3. Type 2 diabetes mellitus. 4. Morbid obesity. 5. Obstructive sleep apnea (JOSE). 6. Fibromyalgia. 7. Hyperlipidemia. 8. Gout. 9. Hypertension. PLAN: At this time, we will check serial Accu-Cheks, and we will give her SSI as required [*]that she is on normally. She is on clear liquids at this point per Dr. Culp. We will resume her Neurontin and continue her lisinopril and Cymbalta. Dr. Culp has her on Lovenox prophylactically, and she is on OxyIR for pain control. She has been given some Senokot b.i.d. for constipation, and I will treat her hemorrhoid with some Anusol HC cream. cc: MD Kev Tong MD
--- NOTE | 2018-11-09 19:24 | OPERATIVE NOTE ---
PROCEDURE DATE: 11/09/2018 PREOPERATIVE DIAGNOSES: 1. Left subtalar dislocation. 2. Left Charcot ankle. 3. Left Charcot hindfoot. 4. Left Charcot mid foot. POSTOPERATIVE DIAGNOSES: 1. Left subtalar dislocation. 2. Left Charcot ankle. 3. Left Charcot hindfoot. 4. Left Charcot mid foot. PROCEDURES: 1. Left talectomy. 2. Left pantalar fusion, left tibiocalcaneal fusion, and navicular-calcaneal fusion. 3. Left mid tarsal multiple fusions. 4. A 22 modifier. SURGEON: Kev Culp MD PUBLIC WORKS MANAGER: MIREILLE Esposiot, who was an integral part of the case, helping with all aspects of the case, helping increase our OR efficiency greatly. ANESTHESIA: General with LMA. TOURNIQUET TIME: 130 minutes. IMPLANTS: 1. [employer] Valor hindfoot nail and screws. 2. [employer] beaming midfoot screws. 3. [employer] Augment. DISPOSITION: To PACU, hemodynamically stable. INDICATION FOR PROCEDURE: Ms Dash is a 47-year-old female whom I have been following in clinic for a while. We have been addressing this right side for a while because she had an ulcer over there, and we started addressing on this left side here recently. She has gotten to the point now that she has healed her ulcers, and she wants to get this left side fixed. I discussed with her the risks, benefits, and potential complications. She expressed understanding and wished to proceed. DESCRIPTION OF PROCEDURE: Ms. Dash was identified in the preoperative holding area. The left foot was marked as the correct surgical site. She was then wheeled to the operating room and placed supine on the operating table. All bony prominences were well padded. She was induced under general anesthesia. LMA was placed. Tourniquet was placed to the left thigh. Left lower extremity was then prepped with chlorhexidine gluconate scrub and then ChloraPrep, and draped in normal sterile fashion. Surgical pause was performed. We identified the correct patient, the correct side, and the correct procedure. Preoperative antibiotics were given. Esmarch was used to exsanguinate the left lower extremity and tourniquet was inflated to 300 mmHg. I started with a medial approach to the hindfoot and midfoot and dissection was carried down. It went to the capsule and you could easily see pretty much all of the talar head and most of the talus as well. We exposed pretty much all of that talar head and decided that since she was so locked in and I could not really budge her at all even after releasing everything, that we had to perform a talectomy to get her hind foot back around underneath the tibia, so we ended up osteotomizing the neck of the talus. I took out the head and then osteotomized the rest of the body and then took out the rest of the body. Once we got the talus out, then Esperanza Ocampo, my nurse practitioner, on the back table was able to rongeur all the good bone out of the talus so that we could use that for bone graft as well. I then denuded all the cartilage off the calcaneus and the tibia and ended up having to take off the medial malleolus as well and the lateral malleolus so that we could get good compression of the calcaneus onto the tibia. After that, I was able to get good compression and about half that joint was compressed really well. Then, I planned on packing the other half with the bone graft to let everything just fuse in together. I then drilled both sides of the bone of the tibia and the calcaneus and the navicular facet as well after I denuded all the cartilage off of it. All the joints I then got my guidewire into the calcaneus and then got my hind foot really well aligned and then drove that guidewire up the tibia. We confirmed that with fluoroscopic imaging. We then drilled, put our ball-tipped guidewire up, and then used the flexible reamers to drill and started to ream the canal and then I put an 11.5 mm nail by 250 up and that actually fit really well. I put 1 locking screw proximally, and then 1 screw in the calcaneus. I then compressed the joint and we actually got really good compression. I then placed 2 more screws in the calcaneus. The outrigger guide was then removed. Overall position of the foot looked good. Dexter heel view showed that the calcaneus was under that tibia and just in a little bit of valgus, maybe about 5 degrees, so I was very happy with our overall position. I then used all of our bone graft and mixed it with Augment and then I packed that in there really well to fill in that whole space, so I was very happy with our bone grafting. It actually filled that space very well. That completed really our pantalar fusion and our whole excision of the talus. I then turned my attention to the midfoot area. I made an incision over the 1st and 2nd MTP joints dorsally, starting with that first MTP joint. I was able to get a guidewire up it, across the midfoot, and got the foot out of as much varus as I could and then I drilled over that wire and with my drill in, I was able to temporarily pin everything into place and I used a solid Salvation beam across that area and that actually held really well. I then did the same thing on the 2nd. I used a solid Salvation beam across there. I then removed the temporary pins. My overall alignment looked really good. I still had a little bit of movement of that lateral side, but it did not seem pathologic so I did not elect to fuse the lateral midfoot. Final images were taken, which showed that we had really good overall alignment in both AP and lateral views of the foot, AP ankle, and a Dexter heel view. I did put a 22 modifier for this because it was very difficult to get her reduction and get everything aligned really well and that took a lot of time and effort. We then able to close everything with 0 Vicryl for the deep layers, 2-0 Vicryl for the subcutaneous, and nylon on the skin. Adaptic, 4x4s, ABD, Sof-Rol, and posterior splint were applied. Tourniquet was let down. Patient had good capillary refill return to the toes. She was then awoken from general anesthesia, moved to her own bed, and taken to PACU in stable condition. PLAN: Postoperatively, she will be nonweightbearing on the left lower extremity. She will be admitted, and I will see her in the morning. cc: Kev Culp MD
[2018-11-09] MEDS: ZOFRAN IV PRN (19:44)
[2018-11-09] MEDS: PERIDEX MT SCH (20:59)
[2018-11-09] MEDS: ANUSOL-HC CREAM PR SCH (21:58)
[2018-11-10] MEDS: MORPHINE IV PRN ×8 (00:19→20:48)
[2018-11-10] MEDS: HUMULIN R SUBQ SCH ×3 (00:26→11:56)
[2018-11-10] MEDS: OXY IR PO PRN ×3 (02:38→15:52)
[2018-11-10] MEDS: KEFZOL 1 GM/D5W 1 GM/50 ML IVPB IV SCH ×2 (02:40→12:10)
[2018-11-10] MEDS: ZOFRAN IV PRN ×2 (03:31→14:11)
[2018-11-10] MEDS: LOVENOX SUBQ SCH (05:41)
[2018-11-10 06:30] LABS: BASO# 0.01 X1000 (0.0-0.2); BASO% 0.1 % (0.0-0.8); EOS% 1.3 % (0.0-10.0); HEMATOCRIT 30.8 % (37.0-47.0); HEMOGLOBIN 9.5 g/dL (12.0-16.0); IMM GRAN# 0.05 X1000 (0.0-0.04); IMM GRAN% 0.7 % (0.0-0.5); LYMPH% 19.9 % (20.5-51.1); MCH 29.1 PG (27-31); MCHC 30.8 g/dL (33-37); MCV 94.2 FL (81-99); MONO# 0.89 X1000 (0.11-0.59); MONO% 11.8 % (1.7-9.3); MPV 8.8 FL (7.4-10.4); NEUT# 4.97 X1000 (1.4-6.5); NEUT% 66.2 % (42.2-75.2); PLT 287 X1000 (130-400); RBC 3.27 XMIL (4.2-5.4); RDW 20.1 % (11.5-14.5); WBC 7.52 X1000 (4.8-10.8)
[2018-11-10 06:44] LABS: HEMOGLOBIN A1C 5.1 % (4.8-6.0)
[2018-11-10 06:52] LABS: CALCIUM 9.1 mg/dL (8.8-10.2); CREATININE 1.3 mg/dL (0.5-0.9); POTASSIUM 5.3 mmol/L (3.5-5.1)
--- NOTE | 2018-11-10 08:02 | PROGRESS NOTE ---
DATE: 11/10/2018 SUBJECTIVE: Ms. Dash lying in bed this morning. Had an okay night last night. She was in some pain. OBJECTIVE: Left lower extremity: Splint is clean, dry, and intact. She is able to move the toes, and she has decreased sensation to light touch to the toes. Good capillary refill to all the toes. ASSESSMENT: Status post left talectomy with tibiocalcaneal fusion and midfoot fusion. PLAN: I went over with Ms. Dash, that this was a big surgery. But I do feel that we got her foot in a lot better position. She will be here through the weekend. Integrity Engineer will begin working on discharge planning. Then we will plan on discharge either Tuesday or Tuesday this next week. cc: MD Mitch Mckeon MD
[2018-11-10] MEDS: ANUSOL-HC CREAM PR SCH (08:05)
[2018-11-10] MEDS: CYMBALTA PO SCH (08:06)
[2018-11-10] MEDS: FOLIC ACID PO SCH (08:10)
[2018-11-10] MEDS: PERIDEX MT SCH ×2 (08:11→20:48)
[2018-11-10] MEDS: NEURONTIN PO SCH ×3 (08:11→17:59)
[2018-11-10] MEDS ORDERED: PRINIVIL PO SCH (09:00)
[2018-11-10] MEDS ORDERED: NS 500 ML ONE (12:09)
[2018-11-10] MEDS ORDERED: NS 500 ML IV ONE (12:26)
--- NOTE | 2018-11-10 13:53 | PROGRESS NOTE ---
DATE: 11/10/2018 SUBJECTIVE: The patient is sitting up in a chair, eating her lunch without difficulty. Blood pressures have been slightly low at times and her lisinopril was held this morning. She is having to take some pain medicines and has had some history of low blood pressures with pain medications in the past. OBJECTIVE: Vital Signs: T-max 100.1 degrees, pulse 103, respirations 16, blood pressure 82/50. Cardiovascular: RRR without murmur. Lungs: CTA. Right Lower Extremity: Without edema. Neurologic: Nonfocal. Left lower extremity: In a cast. LABORATORY DATA: A1c 5.1, potassium 5.3, creatinine 1.3. White count 7.5, hemoglobin 9.5, platelets 287,000. ASSESSMENT: 1. Postoperative day #1, status post left ankle and foot surgery/fusion. 2. Mild hyperkalemia. 3. Mild anemia thought related to blood loss anemia associated with surgery, primarily. 4. Type 2 diabetes mellitus. 5. Morbid obesity. 6. Hypertension. 7. Fibromyalgia. 8. Hyperlipidemia. 9. Gout. PLAN: We will repeat potassium level in the morning and monitor CBC. We will resume her Synjardy this afternoon with her supper meal and she will take it twice a day and we will SSI, hold her lisinopril at this point, monitoring her blood pressure closely on the pain medications. Hydrate well. Continue Lovenox as prophylaxis for DVT per Dr. Culp. Physical therapy and social workers working with the patient. cc: Mitch Valenzuela MD
[2018-11-10] MEDS: PATIENT'S OWN MED PO SCH (19:38)
[2018-11-11] MEDS: MORPHINE IV PRN ×6 (00:24→21:05)
[2018-11-11] MEDS: ANUSOL-HC CREAM PR SCH ×3 (01:12→12:41)
[2018-11-11] MEDS: LOVENOX SUBQ SCH (05:00)
[2018-11-11 06:28] LABS: BASO# 0.03 X1000 (0.0-0.2); BASO% 0.4 % (0.0-0.8); EOS# 0.08 X1000 (0.0-0.7); EOS% 1.1 % (0.0-10.0); HEMATOCRIT 28.9 % (37.0-47.0); IMM GRAN# 0.06 X1000 (0.0-0.04); IMM GRAN% 0.9 % (0.0-0.5); LYMPH# 0.77 X1000 (1.2-3.4); MCH 28.8 PG (27-31); MCHC 31.1 g/dL (33-37); MCV 92.3 FL (81-99); MONO# 1.04 X1000 (0.11-0.59); MONO% 14.8 % (1.7-9.3); MPV 9.1 FL (7.4-10.4); NEUT# 5.05 X1000 (1.4-6.5); NEUT% 71.8 % (42.2-75.2); PLT 254 X1000 (130-400); RBC 3.13 XMIL (4.2-5.4); RDW 19.2 % (11.5-14.5); WBC 7.03 X1000 (4.8-10.8)
[2018-11-11 06:45] LABS: CALCIUM 8.7 mg/dL (8.8-10.2); CREATININE 1.3 mg/dL (0.5-0.9)
[2018-11-11] MEDS: OXY IR PO PRN ×2 (07:38→22:16)
[2018-11-11] MEDS: FOLIC ACID PO SCH (08:46)
[2018-11-11] MEDS: PERIDEX MT SCH ×2 (08:46→21:05)
[2018-11-11] MEDS: NEURONTIN PO SCH ×3 (08:46→16:25)
[2018-11-11] MEDS: CYMBALTA PO SCH (08:46)
[2018-11-11] MEDS: PATIENT'S OWN MED PO SCH ×2 (08:51→16:25)
--- NOTE | 2018-11-11 10:39 | PROGRESS NOTE ---
DATE: 11/11/2018 Ms. Dash is seen status post reconstructive surgery of her Charcot foot. She is doing relatively well with that. She is awaiting discharge to rehab center possibly on Tuesday. She reports straining her shoulder yesterday. She complains of some soreness about the right shoulder. Exam reveals no deformity about the shoulder. No ecchymoses or bruising. She has some diffuse tenderness over the deltoid. I have discussed with her to rest it today and begin gentle range of motion tomorrow. If she fails to improve, we will consider further workup with x-ray. I do not see any signs of fracture, and she reports just feeling it strain when she was trying to get out of bed. We will continue to monitor this and plan on transfer out of the hospital on Tuesday. cc: MD Mitch Mccollum MD
[2018-11-11] MEDS ORDERED: MUCINEX D PO PRN (17:50)
--- NOTE | 2018-11-11 19:45 | PROGRESS NOTE ---
DATE: 11/11/2018 SUBJECTIVE: Patient complains of some right shoulder pain. She says she strained her right shoulder trying to pull herself up in bed last evening. She has had mild nasal congestion. Otherwise, notes pain in her left leg is improved. OBJECTIVE: Vital Signs: T-max 100. Vital signs stable. BM x1. Cardiovascular: Regular rate and rhythm without murmur. Lungs: Clear to auscultation. Abdomen: Soft, nontender, nondistended. Extremities: Right lower extremity, no calf tenderness, cords or edema. Peripheral pulse on the right 2+. Neurologic: Cranial nerves are intact. LABS: White count 7, hemoglobin 9, platelets 254, potassium 5.0, sodium 132, BUN 32, creatinine 1.3. Blood sugars low 200s primarily. ASSESSMENT: 1. Postoperative day #2 status post left ankle and foot reconstructive surgery. 2. Hyperkalemia, resolved. 3. Mild head congestion. 4. Right shoulder strain. 5. Mild anemia, thought related to blood loss anemia associated with her recent surgery. 6. Type 2 diabetes mellitus. 7. Morbid obesity. 8. Hypertension. 9. Fibromyalgia. 10. Hyperlipidemia. 11. Gout. PLAN: She is back on her Synjardy and her other home medications. We will give her a p.r.n. medicine for nasal congestion. Dr. Lindquist has evaluated her shoulder. We will continue to follow along with the patient. cc: Mitch Valenzuela MD
[2018-11-11] MEDS: LOPID PO SCH (21:05)
[2018-11-11] MEDS: SENOKOT PO PRN (22:17)
[2018-11-12] MEDS: ANUSOL-HC CREAM PR SCH ×3 (00:05→22:01)
[2018-11-12] MEDS: MORPHINE IV PRN ×6 (02:24→22:00)
[2018-11-12] MEDS: OXY IR PO PRN (06:17)
[2018-11-12] MEDS: LOVENOX SUBQ SCH (06:18)
[2018-11-12] MEDS: NEURONTIN PO SCH ×3 (08:09→17:24)
[2018-11-12] MEDS: PERIDEX MT SCH ×2 (08:09→22:01)
[2018-11-12] MEDS: CYMBALTA PO SCH (08:09)
[2018-11-12] MEDS: ASPIRIN EC PO SCH (08:09)
[2018-11-12] MEDS: FOLIC ACID PO SCH (08:09)
[2018-11-12] MEDS: LOPID PO SCH ×2 (08:09→22:01)
[2018-11-12] MEDS: PATIENT'S OWN MED PO SCH ×2 (08:10→17:25)
--- NOTE | 2018-11-12 09:39 | PROGRESS NOTE ---
DATE: 11/12/2018 Ms. Dash is seen for Dr. Culp status post surgical correction of her Charcot foot. At the present time, she is doing relatively well. She reports her shoulder about the right shoulder is improving. On exam, she has improving range of motion about the shoulder. Her bandage over the lower extremity is clean and dry. She is afebrile. Currently, she is awaiting discharge and placement for home needs. She will be seen by Dr. Culp or his nurse practitioner tomorrow. Currently, she appears to be stable. cc: MD Mitch Mccollum MD
--- NOTE | 2018-11-12 17:25 | PROGRESS NOTE ---
DATE: 11/12/2018 SUBJECTIVE: Patient feeling better overall less pain in her right shoulder. No head congestion. I was mistaken yesterday. She has not had a bowel movement since her surgery. OBJECTIVE: T-max 99.6 degrees. Vital signs stable.CV: RRR without murmur. Lungs: CTA. Abdomen: Soft, protuberant, nontender, nondistended. Extremities: Right lower extremity without edema or cord. No tenderness. Peripheral pulse on the right 2+. Neuro: CN 2 through 12 intact nonfocal. Left lower extremity is dressed in a bandage. Blood sugars in the 100s. ASSESSMENT: 1. Postoperative day #3 status post left ankle and foot reconstructive surgery due to Charcot foot. 2. Right shoulder strain, mild. 3. Mild constipation. 4. Mild anemia. 5. Type 2 diabetes mellitus. 6. Morbid obesity. 7. Hypertension. 8. Fibromyalgia. 9. Hyperlipidemia. 10. Gout. PLAN: Continue her [*] and other home medications. Will add MiraLAX b.i.d. She is scheduled to go to rehab tomorrow if everything goes well. cc: Mitch Valenzuela MD
[2018-11-12] MEDS: MIRALAX PO SCH (22:09)
[2018-11-12] MEDS: SENOKOT PO PRN (22:09)
[2018-11-13] MEDS: MORPHINE IV PRN ×2 (02:36→08:43)
[2018-11-13] MEDS: OXY IR PO PRN ×5 (05:58→22:21)
[2018-11-13] MEDS: LOVENOX SUBQ SCH (05:58)
[2018-11-13] MEDS: FOLIC ACID PO SCH (08:41)
[2018-11-13] MEDS: PATIENT'S OWN MED PO SCH ×2 (08:41→17:20)
[2018-11-13] MEDS: NEURONTIN PO SCH ×3 (08:41→17:41)
[2018-11-13] MEDS: ASPIRIN EC PO SCH (08:42)
[2018-11-13] MEDS: MIRALAX PO SCH (08:42)
[2018-11-13] MEDS: CYMBALTA PO SCH (08:42)
[2018-11-13] MEDS: LOPID PO SCH ×2 (08:42→22:22)
[2018-11-13] MEDS: PERIDEX MT SCH (08:43)
[2018-11-13] MEDS: ANUSOL-HC CREAM PR SCH (08:44)
[2018-11-13] MEDS: SENOKOT PO PRN (08:47)
[2018-11-13] MEDS ORDERED: MILK OF MAGNESIA PO PRN (09:11)
--- NOTE | 2018-11-13 12:37 | PROGRESS NOTE ---
DATE: 11/13/2018 SUBJECTIVE: Ms. Dash is lying in bed this morning. Pain seems well controlled. She has been up to the bedside chair. Overall, doing okay. OBJECTIVE: On left lower extremity exam, splint is clean, dry, and intact. She is able to move the toes. Good capillary refill to all the toes. ASSESSMENT: Status post left hindfoot, midfoot, and ankle Charcot reconstruction. PLAN: Ms. Dash will remain nonweightbearing to the left lower extremity. administrative services assistant is involved with discharge planning. She should be able to go home today if everything does work out from a rehab standpoint. Then I will see her this Tuesday in the clinic and we will go to a cast. She is nonweightbearing to the left lower extremity. cc: MD Mitch Mckeon MD
--- NOTE | 2018-11-13 13:01 | PROGRESS NOTE ---
DATE: 11/13/2018 SUBJECTIVE: The patient is stable. No bowel movement, but she has taken MiraLAX and milk of magnesia by her report today. She denies abdominal pain. OBJECTIVE: Vital Signs: Afebrile. Vital signs stable. Blood sugars mid 100s. CV: RRR without murmur. Lungs: CTA. Abdomen: Soft. Active bowel sounds. Nontender, nondistended. Extremities: Right lower extremity with no calf tenderness, cords, or edema. Peripheral pulses 2+ . Neurologic: Cranial nerves II through XII intact. Nonfocal. ASSESSMENT: 1. Postoperative day #4, status post left ankle and foot reconstructive surgery due to Charcot joint. 2. Right shoulder strain, improved. 3. Constipation. 4. Mild anemia. 5. Type 2 diabetes mellitus. 6. Morbid obesity. 7. Hypertension. 8. Fibromyalgia. 9. Hyperlipidemia. 10. Gout. PLAN: Continue Synjardy and other home medications. Continue the b.i.d. MiraLAX with p.r.n. milk of magnesia. Will monitor bowel movements. She is awaiting rehab bed, and is stable to go there once that comes through. cc: Mitch Valenzuela MD
--- NOTE | 2018-11-13 15:43 | DISCHARGE SUMMARY ---
ADMISSION DATE: 11/09/2018 DISCHARGE DATE: 11/13/2018 ADMITTING DIAGNOSES: 1. Left Charcot ankle and foot. 2. Diabetes mellitus type 2 with peripheral neuropathy. DISCHARGE DIAGNOSES: 1. Left Charcot ankle and foot, status post left Charcot reconstruction. 2. Type 2 diabetes with peripheral neuropathy. PROCEDURES: On 11/09/2018, Dr. Culp performed: 1. Left talectomy. 2. Left plantar pantalar fusion, left tibial calcaneal fusion, and navicular calcaneal fusion. 3. Left mid tarsal multiple fusions. HOSPITAL COURSE: Briseida Dash is a 47-year-old female whom Dr. Culp has been following in clinic for quite a while. He had actually been addressing the right side because she had developed an ulcer on that side. Several months ago, he started addressing the left side. She had started to have a lot of swelling and began developing ulcers on the left side as well. After reviewing the x-rays and having a long discussion, it was decided that she would be a candidate for a left Charcot reconstruction. The patient wished to proceed with that. Risks, benefits, and potential complications were all discussed. She was taken to the operating room on November 09. She tolerated the procedure well and was transferred to the recovery room. After satisfactory recovery, she was transferred to [address] [place] [address]. She has had an uneventful postoperative course. We have been working on getting her to a rehab facility where she can continue to work on her mobilization. She is nonweightbearing to this left lower extremity. We have been working on managing her diabetes. CURRENT VITAL SIGNS: Temperature 98.5 degrees, pulse 94, blood pressure 111/53. She is 92% on room air. LABORATORY DATA: Most recent labs show white count 7.03, hemoglobin and hematocrit 9 and 28.9, platelet count 254,000. BUN is 32 and creatinine is 1.3. DISCHARGE MEDICATIONS: 1. Aspirin 81 mg p.o. daily. 2. Cymbalta 60 mg p.o. daily. 3. Lovenox 40 mg subcu every 24 hours. 4. Folic acid 1 mg p.o. daily. 5. Neurontin 600 mg p.o. t.i.d. 6. Lopid 600 mg p.o. b.i.d. 7. Oxy IR 5 to 10 mg every 4 hours as needed for pain. DISCHARGE DISPOSITION: Ms. Dash is a type 2 diabetic with morbid obesity. She does not have much of a support system at home. For these reasons, we felt that it would be best to get her to a rehab facility so she can continue to work on her mobilization. She will be nonweightbearing to this left lower extremity. However, it will be important for her to get up and start moving. She is going to need to work on transitioning without putting any weight on this left lower extremity. We are going to do Lovenox for DVT prophylaxis. We will do Percocet for pain control. We have held her Voltaren because we want to hold off any NSAIDs during this time to allow for as much bone healing as possible. She will likely be nonweightbearing for a total of 2 months. She is going to stay in the surgical splint while at the rehab. We will take that down at her first office visit. At that time, we will look at the incision and put her in a cast. Again, will do total contact casting for 6 to 8 weeks. Should there be any questions or concerns, please call the office and speak with Dr. Culp or Manju. Dictated by MIREILLE Esposito for Kev Culp MD cc: MIREILLE Esposito MD Stephen W. Harbin, MD
[2018-11-14] MEDS: OXY IR PO PRN ×4 (02:01→15:26)
[2018-11-14] MEDS: MIRALAX PO SCH ×2 (03:53→08:53)
[2018-11-14] MEDS: PERIDEX MT SCH ×2 (03:54→08:53)
[2018-11-14] MEDS: ANUSOL-HC CREAM PR SCH ×2 (03:54→08:54)
[2018-11-14] MEDS: LOVENOX SUBQ SCH (06:00)
--- NOTE | 2018-11-14 08:10 | PROGRESS NOTE ---
DATE: 11/14/2018 SUBJECTIVE: Ms. Dash is lying comfortably in bed. Her pain is well controlled. OBJECTIVE DATA: Left lower extremity exam, the splint is clean, dry, and intact. She is able to move the toes well. She has good capillary refill to the toes. ASSESSMENT: Status post left hind foot, mid foot and ankle Charcot reconstruction. PLAN: Ms. Dash is going to continue to be nonweightbearing on the left lower extremity. We are still working on insurance and finding her a bed for rehab. That will still be the plan. We do want to follow up with her in 1 to 2 weeks once she is discharged from the hospital and put her in a hard total contact cast. I do want her getting up and mobilizing some to the chair. If there are any questions or concerns, please call the office. Dictated by MIREILLE Esposito for Kev Culp MD cc: MIREILLE Esposito MD Stephen W. Harbin, MD
[2018-11-14] MEDS: PATIENT'S OWN MED PO SCH (08:20)
--- NOTE | 2018-11-14 08:42 | PROGRESS NOTE ---
DATE: 11/14/2018 SUBJECTIVE: Patient is without complaints. She is doing well. She had a bowel movement in the past 24 hours. OBJECTIVE: Vital Signs: T-max 99.7 degrees. Vital signs are stable. CV: RRR without murmur. Lungs: CTA. Abdomen: Soft, nontender, nondistended. Extremities: On the right, lacks calf tenderness, cords, or edema. Dressing in place on the left from the knee down. Neurologic: CN 2 through 12 intact. NF. Laboratory Data: Blood sugars mid 100s. ASSESSMENT: 1. Postoperative day #5 status post left ankle and foot reconstructive surgery due to Charcot joint. 2. Right shoulder strain, resolved. 3. Constipation, resolved. 4. Mild anemia. 5. Type 2 diabetes mellitus. 6. Morbid obesity. 7. Hypertension. 8. Fibromyalgia. 9. Hyperlipidemia. 10. Gout. PLAN: Continue b.i.d. MiraLAX. Continue her Synjardy. Physical therapy is working with the patient. She is going to rehab when a bed is available. Continue present care. cc: Mitch Valenzuela MD
[2018-11-14] MEDS: ASPIRIN EC PO SCH (08:53)
[2018-11-14] MEDS: NEURONTIN PO SCH ×2 (08:53→13:27)
[2018-11-14] MEDS: LOPID PO SCH (08:53)
[2018-11-14] MEDS: FOLIC ACID PO SCH (08:53)
[2018-11-14] MEDS: CYMBALTA PO SCH (08:53)
[2018-11-14 14:20] VITALS: BP 119/66
== END 2018-11-14 15:45 | DRG 982 ==
LOC: SURHOLD 09:27 → 4N 13:39
PROVIDERS: ADMIT Family Medicine; ATTEND Orthopaedic Surgery
CPT/HCPCS: 76000; 80048; 82948; 83036; 85025; 94761; 94799; 97116; 97162; 97530; A9270; J0131; J0330; J0690; J1170; J1650; J2270; J2370; J2405; J3010; J7040; J7120; XXXXX

== ENCOUNTER 2019-08-08 03:26 | Inpatient (IN) ==
[2019-07-25 08:55] LABS: URINE SOURCE CLEAN CATCH
--- NOTE | 2019-07-25 09:15 | EKG Report ---
Test Performed on : 07/25/2019 08:13:24 AM Test Reason : PAT Blood Pressure : / mmHG Vent. Rate : 088 BPM Atrial Rate : 088 BPM P-R Int : 146 ms QRS Dur : 092 ms QT Int : 354 ms P-R-T Axes : 056 053 060 degrees QTc Int : 428 ms Normal sinus rhythm. Normal ECG When compared with ECG of 13-SEP-2018 10:36, No significant change was found Confirmed by Tiffany YOUNG, Serjio Gavin ([id number]) on 07/26/2019 7:41:28 AM
[2019-07-25 09:21] LABS: BASO# 0.04 X1000 (0.0-0.2); BASO% 0.8 % (0.0-0.8); EOS# 0.23 X1000 (0.0-0.7); EOS% 4.8 % (0.0-10.0); HEMOGLOBIN 11.6 g/dL (12.0-16.0); IMM GRAN# 0.07 X1000 (0.0-0.04); IMM GRAN% 1.4 % (0.0-0.5); LYMPH# 1.12 X1000 (1.2-3.4); LYMPH% 23.1 % (20.5-51.1); MCH 27.2 PG (27-31); MCHC 30.5 g/dL (33-37); MONO% 6.2 % (1.7-9.3); MPV 9.7 FL (7.4-10.4); NEUT# 3.08 X1000 (1.4-6.5); NEUT% 63.7 % (42.2-75.2); PLT 304 X1000 (130-400); RBC 4.27 XMIL (4.2-5.4); WBC 4.84 X1000 (4.8-10.8)
[2019-07-25 09:26] LABS: BILIRUBIN URINE NEGATIVE (NEGATIVE); BLOOD URINE NEGATIVE (NEGATIVE); COLOR YELLOW; GLUCOSE URINE >1000 mg/dL (NEGATIVE); KETONE URINE NEGATIVE (NEGATIVE); LEUKOCYTES URINE NEGATIVE (NEGATIVE); NITRITE URINE NEGATIVE (NEGATIVE); PH URINE 5.5; PROTEIN URINE NEGATIVE (NEGATIVE); SP GRAVITY URINE 1.017; TURBIDITY URINE CLEAR (CLEAR); UROBILINOGEN URINE NORMAL (NORMAL)
[2019-07-25 09:28] LABS: UR EPITHELIAL CELLS <10 /HPF (<10); URINE BACTERIA 4+ /HPF; URINE RBC <10 /HPF (<10)
[2019-07-25 09:33] LABS: CALCIUM 8.6 mg/dL (8.8-10.2); CREATININE 1.3 mg/dL (0.5-0.9); POTASSIUM 4.6 mmol/L (3.5-5.1)
[2019-07-25 09:36] LABS: HEMOGLOBIN A1C 5.7 % (4.8-6.0)
[2019-07-25 09:49] LABS: INR 0.98; PROTIME 13.1 Seconds (11.0-16.0)
[2019-08-08] MEDS ORDERED: PEPCID ONE (06:02)
[2019-08-08] MEDS ORDERED: COLACE ONE (06:02)
[2019-08-08] MEDS ORDERED: REGLAN ONE (06:02)
[2019-08-08] MEDS ORDERED: LR 1,000 ML ONE (06:03)
[2019-08-08] MEDS ORDERED: KEFZOL 1 GM/D5W 2 GM/100 ML IVPB ONE (06:03)
[2019-08-08] MEDS ORDERED: LYRICA ONE (06:03)
[2019-08-08] MEDS ORDERED: CELEBREX ONE (06:03)
[2019-08-08] MEDS ORDERED: SODIUM CHLORIDE 0.9% ONE (06:28)
[2019-08-08] MEDS ORDERED: TORADOL ONE (06:28)
[2019-08-08] MEDS ORDERED: DURAMORPH ONE (06:28)
[2019-08-08] MEDS ORDERED: EXPAREL 1.3% ONE (06:29)
[2019-08-08] MEDS ORDERED: MARCAINE 0.25% PF ONE (06:30)
[2019-08-08] MEDS ORDERED: DIPRIVAN 1% 500 MG/50 ML BOTTLE ONE (07:21)
[2019-08-08] MEDS ORDERED: VERSED ONE ×2 (07:23→07:24)
[2019-08-08] MEDS ORDERED: CYKLOKAPRON 1,000 MG/NS 1,000 MG/100 ML IVPB ONE ×3 (07:27→12:27)
[2019-08-08] MEDS ORDERED: VANCOMYCIN ONE (07:53)
[2019-08-08] MEDS ORDERED: FENTANYL ONE (08:17)
[2019-08-08] MEDS ORDERED: NEO-SYNEPHRINE ONE ×2 (08:34→08:56)
[2019-08-08] MEDS ORDERED: EPHEDRINE ONE (08:34)
[2019-08-08] MEDS ORDERED: ZOFRAN ONE (08:53)
[2019-08-08] MEDS ORDERED: OFIRMEV 1000 MG/ISOTONIC SOLN 1,000 MG/100 ML BOTTLE ONE (08:53)
[2019-08-08] MEDS ORDERED: DECADRON ONE (08:53)
[2019-08-08 10:36] LABS: URINE SOURCE CATH
[2019-08-08 10:40] LABS: BILIRUBIN URINE NEGATIVE (NEGATIVE); BLOOD URINE NEGATIVE (NEGATIVE); COLOR YELLOW; GLUCOSE URINE >1000 mg/dL (NEGATIVE); KETONE URINE NEGATIVE (NEGATIVE); LEUKOCYTES URINE MODERATE (NEGATIVE); NITRITE URINE NEGATIVE (NEGATIVE); PROTEIN URINE NEGATIVE (NEGATIVE); SP GRAVITY URINE 1.023; TURBIDITY URINE CLEAR (CLEAR); UROBILINOGEN URINE NORMAL (NORMAL)
[2019-08-08 10:41] LABS: UR EPITHELIAL CELLS <10 /HPF (<10); URINE BACTERIA 4+ /HPF; URINE RBC <10 /HPF (<10); URINE WBC TNTC /HPF (<10)
[2019-08-08] MEDS ORDERED: LR 500 ML ONE (10:53)
[2019-08-08] MEDS ORDERED: NS 0 ML ONE (10:54)
[2019-08-08] MEDS ORDERED: NS 1,000 ML ONE (10:57)
--- NOTE | 2019-08-08 11:50 | Diag Imaging Result Doc PS360 ---
KNEE 1-2 VIEWS-RIGHT - 08/08/2019 INDICATION: Right total knee TECHNIQUE: Two views COMPARISON: 11/01/2014 FINDINGS: There is a right total knee arthroplasty in good position. Alignment is anatomic. No hardware fracture or loosening. IMPRESSION: No complication. Electronically signed by Emilio Villar 08/08/2019 11:48 AM
[2019-08-08] MEDS ORDERED: OXY IR PO PRN (14:00)
[2019-08-08] MEDS ORDERED: MORPHINE IV PRN ×2 (14:00)
[2019-08-08] MEDS ORDERED: ZOFRAN PO PRN (14:00)
[2019-08-08] MEDS ORDERED: TYLENOL PO SCH (15:00)
--- NOTE | 2019-08-08 15:02 | OPERATIVE NOTE ---
PROCEDURE DATE: 08/08/2019 PREOPERATIVE DIAGNOSIS: Degenerative arthritis, right knee. POSTOPERATIVE DIAGNOSIS: Degenerative arthritis, right knee. PROCEDURE: Right total knee arthroplasty with DePuy Attune size 6 posterior stabilized femur, size 6 tibial tray, an 8 mm rotating platform tibial insert, and a 35 mm medialized anatomic patella. SURGEON: Elias Portillo MD HEEL CUTTER: MIREILLE Esposito, who was necessary for proper retraction and manipulation of the extremity during the case. SECOND FISHING VESSEL CAPTAIN: Ivan Diop RN ANESTHESIA: Spinal. INTRAVENOUS FLUIDS: 2000 mL lactated Ringer's. ESTIMATED BLOOD LOSS: 30 mL. TOURNIQUET TIME: 85 minutes at 300 mmHg. COMPLICATIONS: None. INDICATION: The patient is a 48-year-old female with chronic history of worsening pain and discomfort over the right knee. X-rays revealed significant degenerative arthritis with a valgus deformity. Given the patient's findings, a recommendation to proceed with right total knee arthroplasty was offered. Risks and benefits of surgery were explained, including the risks of anesthesia, , bleeding, infection, failure to relieve pain, postoperative stiffness, nerve injury, blood clots, and other imponderables. All questions were answered and patient and family wished to proceed with surgery. DETAILS OF OPERATION: The patient was taken to the operating room and underwent spinal anesthesia. After adequate anesthesia was obtained, patient was placed in supine position on the operating table. Right lower extremity was subsequently prepped and draped in the usual sterile fashion. An Esmarch was used to exsanguinate the right lower extremity. Tourniquet was inflated to 300 mmHg. A standard anterior incision made with skin knife. Medial and lateral skin envelopes were developed. A standard medial patella arthrotomy was then performed. Patellar fat pad was excised. Attention was turned to the patella, which was everted and resected in standard fashion. A protective disk was placed. Retractors were then placed. Attention was then turned to the distal femur. Reaming approximately 1 cm anterior to the PCL insertion, a starting reamer was passed. Intramedullary guide with a distal femoral cutting block was pinned in position. Distal femoral cut was then performed in a standard fashion. Again the patient did have significant valgus deformity. After this had been performed, a sizing block was placed and measured to a size 6. A size 6 cutting block was pinned in position. Anterior, posterior, and chamfer cuts were then made. Attention was then turned to the proximal tibia, where using the extramedullary guide, the proximal tibia cutting block was pinned in position. Proximal tibia was then resected. A curved osteotome was used to remove the posterior osteophytes. Medial and lateral menisci were excised. Further resection of the ACL and PCL was performed. A spacer block was placed and had good soft tissue balance in both flexion and extension. Attention was turned back to the proximal tibia, where a size 6 tibial tray appeared to the correct size. This was pinned into position. This was followed by a central reamer and a fin punch. A box cutting guide was pinned on the distal femur. A box cut was then performed. The trial femoral component was then placed and 2 lug holes were drilled. The trial tibial insert was then placed. Attention was turned back to the patella, where a size 35 appeared to be the correct. The holes were then drilled. The trial component was then placed and the patient had some mild lateral translation. A lateral release was then performed and had good patellofemoral tracking after this had been conducted. The components were then removed. Copious irrigation was then performed with antibiotic pulsatile lavage while vancomycin was mixed with cement on the back table. Sequential cementing was then performed first with the tibial tray and excess cement with a [place], followed by the femoral component and excess cement was removed with a [place], followed by a trial tibial insert and the knee was then placed in full extension and axial loading was maintained while cement cured. Patella cemented in standard fashion and patella clamp was placed. While cement was curing, Exparel was placed in the deep soft tissue, as well as subcutaneous tissue. After the cement had cured, peripheral cement was removed with a small osteotome. A size 8 mm rotating platform tibial insert appeared to be the correct size. This trial insert was removed. Exparel was placed in the deep posterior capsule followed by irrigation once again. An 8 mm rotating platform tibial insert was then placed. The knee was then carried through range of motion and good range of motion and good soft tissue balancing and good patellofemoral tracking. A /- Hemovac drain was placed and was not sewn in. Copious irrigation was then performed once again with antibiotic pulsatile lavage. A #1 Vicryl was used to repair the arthrotomy, followed by 2-0 Vicryl to repair subcutaneous tissue, and skin shakeel. Adaptic, sterile 4 x 4's, Webril, cryo unit, and Jason wrap were applied to the right lower extremity. Patient tolerated this well with no complications and transferred to the recovery room in stable condition. cc: Elias Portillo MD
[2019-08-08] MEDS: OXY IR PO PRN ×3 (15:24→21:36)
[2019-08-08] MEDS: NS 1,000 ML IV SCH (15:25)
[2019-08-08] MEDS: KEFZOL 2 GM/D5W 2 GM/50 ML IVPB IV SCH (20:18)
[2019-08-08] MEDS: PERIDEX MT SCH (20:19)
[2019-08-08] MEDS: BUSPAR PO SCH (20:20)
[2019-08-08] MEDS: GLUCOPHAGE PO SCH (20:21)
[2019-08-08] MEDS: NEURONTIN PO SCH (20:21)
[2019-08-08] MEDS: COLACE PO SCH (20:21)
[2019-08-08] MEDS: LOPID PO SCH (20:21)
[2019-08-08] MEDS: CYMBALTA PO SCH (20:21)
[2019-08-08] MEDS: DESYREL PO SCH (20:21)
[2019-08-08] MEDS: EMPAGLIFLOZIN PO SCH (20:30)
[2019-08-08] MEDS: METFORMIN HCL PO SCH (20:30)
[2019-08-09] MEDS: OXY IR PO PRN ×6 (00:16→21:45)
[2019-08-09] MEDS: MORPHINE IV PRN ×6 (00:57→19:23)
[2019-08-09] MEDS: KEFZOL 2 GM/D5W 2 GM/50 ML IVPB IV SCH (02:49)
[2019-08-09] MEDS: XARELTO PO SCH (05:58)
[2019-08-09] MEDS ORDERED: OXY IR PO PRN (06:11)
[2019-08-09 06:48] LABS: HEMATOCRIT 28.8 % (37.0-47.0); HEMOGLOBIN 8.9 g/dL (12.0-16.0)
[2019-08-09 07:05] LABS: CALCIUM 8.8 mg/dL (8.8-10.2); CREATININE 1.3 mg/dL (0.5-0.9)
[2019-08-09] MEDS: PRINIVIL PO SCH (09:49)
[2019-08-09] MEDS: GLUCOPHAGE PO SCH ×2 (09:50→21:41)
[2019-08-09] MEDS: CYMBALTA PO SCH ×2 (09:50→20:28)
[2019-08-09] MEDS: NEURONTIN PO SCH ×3 (09:50→20:28)
[2019-08-09] MEDS: FOLIC ACID PO SCH (09:50)
[2019-08-09] MEDS: COLACE PO SCH ×2 (09:51→20:28)
[2019-08-09] MEDS: BUSPAR PO SCH ×2 (09:51→20:26)
[2019-08-09] MEDS: METFORMIN HCL PO SCH ×2 (09:52→21:41)
[2019-08-09] MEDS: EMPAGLIFLOZIN PO SCH ×2 (09:52→21:41)
[2019-08-09] MEDS: PERIDEX MT SCH ×2 (09:54→20:29)
[2019-08-09] MEDS: LOPID PO SCH ×2 (12:02→20:27)
--- NOTE | 2019-08-09 12:12 | ORTHOPAEDICS PROGRESS NOTE ---
DATE: 08/09/2019 CLINICAL HISTORY: Patient is a pleasant, 48-year-old female who is 1 day status post right total knee arthroplasty. She is currently resting comfortably. Has some mild discomfort in her knee. PHYSICAL EXAMINATION: The patient's right lower extremity wound looks good. There are no signs or symptoms of infection. She has active dorsiflexion plantar flexion of her ankle. Compartments are soft. LABS: Her labs are pending. IMPRESSION: Postoperative day #1 status post right total knee arthroplasty. PLAN: At this point, we will consult [facility] for discharge planning. Patient does have multiple medical problems including type 2 diabetes mellitus and status post left Charcot reconstruction and anticipate that slow with mobilization. Will have [facility] to evaluate for inpatient rehabilitation. We will begin physical therapy weightbearing as tolerated, right lower extremity. cc: Elias Portillo MD
[2019-08-09] MEDS: NS 1,000 ML IV SCH (12:13)
[2019-08-09] MEDS: PATIENT'S OWN MED PO SCH (15:03)
[2019-08-09] MEDS ORDERED: METHOTREXATE PO SCH (18:00)
[2019-08-09] MEDS: DESYREL PO SCH (20:26)
[2019-08-10] MEDS: MORPHINE IV PRN ×3 (01:11→12:01)
[2019-08-10] MEDS: OXY IR PO PRN ×3 (02:39→10:43)
[2019-08-10] MEDS: XARELTO PO SCH (05:47)
[2019-08-10 06:42] LABS: HEMATOCRIT 30.8 % (37.0-47.0); HEMOGLOBIN 9.4 g/dL (12.0-16.0)
[2019-08-10] MEDS: PERIDEX MT SCH (10:39)
[2019-08-10] MEDS: COLACE PO SCH (10:39)
[2019-08-10] MEDS: GLUCOPHAGE PO SCH (10:39)
[2019-08-10] MEDS: FOLIC ACID PO SCH (10:40)
[2019-08-10] MEDS: CYMBALTA PO SCH (10:40)
[2019-08-10] MEDS: BUSPAR PO SCH (10:42)
[2019-08-10] MEDS: PRINIVIL PO SCH (10:42)
[2019-08-10] MEDS: EMPAGLIFLOZIN PO SCH (10:46)
[2019-08-10] MEDS: METFORMIN HCL PO SCH (10:46)
[2019-08-10] MEDS: PATIENT'S OWN MED PO SCH (10:50)
[2019-08-10] MEDS: LOPID PO SCH (11:57)
[2019-08-10] MEDS: NEURONTIN PO SCH (11:57)
[2019-08-10 12:00] VITALS: BP 114/52
--- NOTE | 2019-08-10 12:32 | DISCHARGE SUMMARY ---
ADMISSION DATE: 08/08/2019 DISCHARGE DATE: 08/10/2019 ADMITTING DIAGNOSIS: 1. Degenerative osteoarthritis, right knee. 2. Diabetes mellitus with peripheral neuropathy. DISCHARGE DIAGNOSES: 1. Degenerative arthritis, right knee, status post right total knee arthroplasty. 2. Uncontrolled diabetes mellitus type 2. 3. Klebsiella urinary tract infection. PROCEDURES: On 08/08/2019, Dr. Portillo performed a right total knee arthroplasty. HOSPITAL COURSE: Ms. Dash is a 48-year-old female with a chronic history of worsening pain and discomfort over the right knee. X-rays revealed significant degenerative arthritis with a valgus deformity. Dr. Portillo discussed doing a right total knee arthroplasty and she wished to proceed. She was taken to the operating room where satisfactory anesthesia was obtained. She tolerated the procedure well and was transferred to the recovery room. After satisfactory recovery, she was transferred to [address] [place] [address]. She has had an uneventful postoperative course. She has had some difficulty mobilizing. She also has comorbidities such as obesity, type 2 diabetes, and a current Klebsiella UTI. Because of this, her poor mobility and her lack of care at home, she is going to do a rehab stay. She has worked with physical therapy and was able to walk well. She was able to walk with therapy but was complaining of a lot of pain. She did mostly in-bed exercises. At this time she is ready for discharge. Her temperature is 99.1 degrees, her pulse is 88, respirations are 19, blood pressure is 114/52. She is 98% on room air. Her discharge laboratory data, her hemoglobin and hematocrit are 9.4 and 30.8. Her BUN and creatinine are 26 and 1.3, which is baseline for her. She does have a Klebsiella positive UTI. DISCHARGE MEDICATIONS: 1. BuSpar 25 mg p.o. b.i.d. 2. Colace 100 mg p.o. b.i.d. 3. Cymbalta 60 mg p.o. b.i.d. 4. Folic acid 1 mg p.o. daily. 5. Neurontin 600 mg p.o. t.i.d. 6. Lopid 600 mg p.o. b.i.d. 7. Prinivil 30 mg p.o. daily. 8. Glucophage 500 mg p.o. b.i.d. 9. Percocet 5 mg p.o. every 4 hours as needed for pain. 10. Xarelto 10 mg p.o. every 24 hours for 30 days. 11. Desyrel 100 mg p.o. at bedtime. 12. Keflex 500 mg t.i.d. for 10 days. DISCHARGE DISPOSITION: Ms. Dash is going to [facility]. She is going to continue to work on mobilization and diabetic control. She is going to follow up in the office once she is discharged from the rehab. They can remove her shakeel in 14 days. We did discuss signs and symptoms of postoperative infection and when to call the office. They can do incision care daily. She can shower but no tub baths. She is to keep that area nice and dry. She does need to continue to work on mobilization and make sure she gets full extension and flexion back. We will do Xarelto for DVT prophylaxis. We are going to do Keflex for 10 days for the treatment of the Klebsiella UTI. If she has any questions or concerns, she can call the office. Dictated by MIREILLE Esposito for Elias Portillo MD cc: MIREILLE Esposito MD
--- NOTE | 2019-08-10 12:49 | ORTHOPAEDICS PROGRESS NOTE ---
DATE: 08/10/2019 SUBJECTIVE: The patient is a 48-year-old female who is 2 days status post right total knee arthroplasty. She is expecting discomfort with the right knee this morning. PHYSICAL EXAMINATION: On the patient's right knee, her wound looks good. There are no signs or symptoms of infection. Her calf is soft. She has active dorsiflexion and plantar flexion. LABORATORY: Pending. IMPRESSION: Postoperative day #2 status post right total knee arthroplasty. PLAN: At this point, we will continue. Patient is slow to mobilize in physical therapy. It was felt she would benefit from inpatient rehabilitation. [facility] has been consulted for placement. We will continue progressing with physical therapy as tolerated. cc: Elias Portillo MD
== END 2019-08-10 13:24 | DRG 470 ==
LOC: SURHOLD 03:26 → 4N 08:34
PROVIDERS: ADMIT Orthopaedic Surgery Adult Reconstructive Orthopaedic Surgery; ATTEND Orthopaedic Surgery Adult Reconstructive Orthopaedic Surgery